=== PATIENT | female | born 1985 | race Caucasian/White ===

== ENCOUNTER 2018-09-11 15:26 | Emergency (ER) | payer OTHER ==
[~2018-09-11] VITALS: Ht 175.3 cm; Wt 136.4 kg
[2018-09-11] MEDS ORDERED: ONDANSETRON HCL 4 MG/2 ML VIAL IVP ONE (18:30)
[2018-09-11] MEDS ORDERED: MORPHINE SULFATE 4 MG/ML SYRINGE IVP ONE (18:30)
[2018-09-11] MEDS ORDERED: BACITRACIN 0.9 GM PACKET OINTMENT TP ONE (19:15)
[2018-09-11 20:23] VITALS: BP 142/83
== END 2018-09-11 20:31 | disposition home or self-care (01) ==
LOC: EMS 15:27
DX: O9A.211 Injury, poisoning and certain other consequences of external causes complicating pregnancy, first trimester (principal); S83.92XA Sprain of unspecified site of left knee, initial encounter; S80.211A Abrasion, right knee, initial encounter; O99.331 Smoking (tobacco) complicating pregnancy, first trimester; F17.210 Nicotine dependence, cigarettes, uncomplicated; Z3A.01 Less than 8 weeks gestation of pregnancy; V00.831A Fall from motorized mobility scooter, initial encounter; Y93.I9 Activity, other involving external motion; Y92.828 Other wilderness area as the place of occurrence of the external cause; Y99.8 Other external cause status
CPT/HCPCS: 29505; 36415; 73562; 84702; 96374; 96375; 99284; 99406; J2270; J2405